=== PATIENT | male | born 1945 | race Caucasian/White ===

== ENCOUNTER → 2024-07-21 13:26 | Outpatient (REF) | payer MEDICARE, BC, SELFPAY ==
--- NOTE | 2024-07-21 14:58 | CARDSERVLU ---
Echocardiogram with [facility] completed after protocol screening completed. Allergies verified.
Patent IV site: ___new start 2nd attempt, successful by VAT, 22P LH__
IV site flushed with 0.9% NaCl pre and post administration.
Diluted bolus method utilized to enhance visualization of ventricular valdes.
Total volume given: __2.5__ mL
site dcd at completion of test.
Patient tolerated all procedures well without complications.
== END ==
LOC: RCS 13:26
PROVIDERS: ATTENDING PHYSICIAN Internal Medicine; FAMILY PHYSICIAN Internal Medicine
DX: I35.0 Nonrheumatic aortic (valve) stenosis (principal)
CPT/HCPCS: 93306; Q9950

== ENCOUNTER 2025-01-28 10:55 | Emergency (ER) | payer MEDICARE, BC, SELFPAY ==
[2025-01-28] VITALS (8 sets, daily range): BP systolic 120–149; BP diastolic 63–80; PULSE 70–78
[2025-01-28 11:14] LABS: Glucose - Point of Care 178 mg/dl (70-99)
[2025-01-28 11:42] LABS: ALT (SGPT) 25 U/L (0-50); AST (SGOT) 24 U/L (17-59); Albumin 4.4 g/dl (3.5-5.0); Alkaline Phosphatase 63 U/L (38-126); Blood Urea Nitrogen 13 mg/dl (9-20); Calcium 9.9 mg/dl (8.4-10.2); Carbon Dioxide 27 mmol/L (22-30); Chloride 104 mmol/L (98-107); Glucose 179 mg/dl (70-99); Potassium 4.3 mmol/L (3.5-5.1); Sodium 139 mmol/L (135-145); Total Bilirubin 0.7 mg/dl (0.2-1.3); Total Protein 7.3 g/dl (6.3-8.2); eGFR > 60.00
[2025-01-28 11:43] LABS: % Basophils 0.7 % (0-2); % Eosinophils 1.5 % (0-6); % Immature Granulocytes 0.3 % (0-0.5); % Lymphocytes 26.3 % (20.5-51.1); % Neutrophils 63.2 % (42.2-75.2); Absolute Basophils 0.1 10^3/uL (0-0.2); Absolute Eosinophils 0.2 10^3/uL (0-0.7); Absolute Lymphocytes 2.6 10^3/uL (1.2-3.4); Absolute Monocytes 0.8 10^3/uL (0.1-0.6); Absolute Neutrophils 6.2 10^3/uL (1.4-6.5); Hematocrit 45.1 % (39.0-52.0); Hemoglobin 15.4 g/dL (13.0-18.0); Mean Corp Hgb Conc. 34.1 g/dL (33.0-37.0); Mean Corpuscular Volume 90.7 fL (80.0-94.0); Mean Platelet Volume 8.6 fL (7.4-10.4); Nucleated Red Blood Cells % 0 % (-); Platelet Count 400 10^3/uL (130-400); Red Blood Cell Count 4.97 10^6/uL (4.70-6.10); Red Cell Dist. Width 13.2 % (11.5-14.5); White Blood Cell Count 9.9 10^3/uL (4.8-10.8)
[2025-01-28 11:51] LABS: Troponin I < 0.012 ng/ml
--- NOTE | 2025-01-28 13:13 | ED.GENMED ---
History of Present Illness
General
Chief Complaint: Chest Pain
Source: patient, spouse and family ([id number] who is at the bedside)
Exam Limitations: none
Time Seen by Provider: 01/28/25 13:12
Nursing documentation reviewed up to this point in time: agreed with
History of Present Illness
History of Present Illness:
The patient is a pleasant 79-year-old man who reports intermittent epigastric/lower chest pressure on and off for several days. Patient reports that at times it is associated with lightheadedness. Patient reports that currently his symptoms are
nearly gone. He reports that the symptoms that developed today began around 8:30 AM and intensified at around 10 [address] driving in his car with his . Patient denies any radiation of pain. He denies shortness of breath. He admits he is
under a lot of stress, as he is currently moving. He denies leg pain or leg swelling. He denies a history of PE and DVT. Patient denies any feelings of balance problems or visual changes. He denies headache.
Past History
Past History
ED Past Medical History: HTN, Hypercholesterolemia, NIDDM, Other (Osteoarthritis, obesity, history of bladder cancer status post resection, DIEGO on CPAP,) and Other (BPH)
ED Past Surgical History: None, Orthopedic, Urological and Other (Umbilical hernia repair)
Social History
Tobacco: Non-smoker
Alcohol: None
Drug: None
Personal:
Living: with family (rehab)
Employment: Other
Family History
Family History: Other (n/c)
Review of Systems
Review of Systems
Allergies reviewed?: Yes
All Other Systems: ROS reviewed and negative except as documented in HPI and ROS
Constitutional: Reports no symptoms
EENT: Reports no symptoms
Respiratory: Reports no symptoms
Cardiac: Reports chest pain and other (Lightheadedness)
ABD/GI: Reports no symptoms
: Reports no symptoms
Musculoskeletal: Reports no symptoms
Skin: Reports no symptoms
Neurological: Reports no symptoms
Endocrine: Reports no symptoms
Hematologic/Lymphatic: Reports no symptoms
Psychiatric: Reports no symptoms
Phy Exam
Physical Exam
Physical Exam:
Physical Exam
General: no apparent distress, not acutely ill. Well uncomfortable appearing
Neck: supple. no meningeal signs. normal psoterior pharynx
Heart: s1/s2 regular rate and rhythm, no murmur. equal radial pulses.
Lungs: no acute respiratory distress. clear bilaterally
Abdomen: normal bowel sounds. not tender. no CVAT
Neuro: alert and oriented. no focal neurological deficits
Skin: no rash
Psychiatric: well kept. interactive and cooperative
Extremities: no edema. no calf tenderness. negative homans. good distal pulses
Scores
Heart Score for Chest Pain Patients
STEMI patient?: No
History: Slightly or Non-Suspicious
ECG: Nonspecific Repolarization
Age: >/= 65 years
Risk Factors: 1 or 2 Risk Factors
Troponin: </= Normal Limit
Heart Score for Chest Pain Patients: 4
Heart Score Risk: 20.3% MACE over next 6 weeks
Course
Orders/Labs/Results
Orders:
Orders
01/28/25 10:56
EKG [Electrocardiogram (*1)] Urgent
Reason for Study: Chest Pain
01/28/25 10:57
EKG- Treatment ONCE
01/28/25 11:13
Complete Blood Count/With Diff Urgent
Comprehensive Metabolic Panel Urgent
Troponin I Urgent
01/28/25 13:22
Orthostatic VS- Treatment ONCE
01/28/25 14:12
Troponin I Urgent
Abnormal Lab Results
01/28/25 01/28/25
11:11 11:13
Absolute Monos (auto) 0.8 H 10^3/uL
(0.1-0.6)
Creatinine 0.6 L mg/dL
(0.7-1.3)
Glucose 179 H mg/dl
(70-99)
POC Glucose 178 H mg/dl
(70-99)
01/28/25 11:13
01/28/25 11:13
Vital Signs
Initial and Last Documented VS:
Initial Vital Signs
Temp Pulse Resp BP Pulse Ox
98.4 F 73 18 149/79 98
01/28/25 11:03 01/28/25 11:03 01/28/25 11:03 01/28/25 11:03 01/28/25 11:03
Last Documented Vital Signs
Temp Pulse Resp BP Pulse Ox
98.4 F 69 14 126/76 97
01/28/25 11:03 01/28/25 13:17 01/28/25 13:17 01/28/25 13:00 01/28/25 13:17
MDM/Problems Addressed
Differential Diagnosis Includes:
Acute coronary syndrome, PE, pneumonia, A-fib
MDM/Problems Addressed:
Patient presents with acute intermittent chest pressure lightheadedness
Chronic conditions affecting care: CAD
Acute Exacerbation and/or Progression of Chronic Illness:
Patient may have acute exacerbation of coronary artery disease
*Critical Care Note
Total Time (30-74mins, 75-104mins- exclusive of procedures): Not Applicable
Data Reviewed
Review of Other/Old Records Reveals: Testing (Cardiac catheterization reviewed from August 2023 which shows mild noncritical coronary artery disease)
Source: patient and family
Update Note
Update Note:
Patient remains well and comfortable appearing. He denies any difficulty with his balance or any visual changes so I do not think there is any sign or symptoms related to stroke. Patient feels comfortable and happy to go home.
ED Attending Note
-
Portions of this chart may have been created with voice recognition software.� Occasional wrong word or��sound alike� substitutions may have occurred due to the inherent limitations of voice recognition software.
Discharge Plan
Departure
Patient Disposition: Home (Routine Discharge)
Date of Disposition: 01/28/25
Time of Disposition: 15:01
Patient with high blood pressure during this ER visit?: Yes
Condition: Good
Covid-19: Not Applicable
Discharge Problem:
Chest pain
Instructions: Chest Pain CBC Follow Up, BLOOD PRESSURE
Prescriptions:
No Action
aspirin 81 MG tablet,delayed release (DR/EC)
81 mg PO DAILY
PreserVision AREDS 1 CAP capsule
1 cap PO DAILY
famotidine 20 MG tablet
20 mg PO HS
finasteride 5 MG tablet
5 mg PO DAILY
lisinopril 20 MG tablet
20 mg PO DAILY Qty: 90 3RF
nitroglycerin 0.4 MG tablet, sublingual
0.4 mg sublingual [id number] PRN (Reason: chest pain) Qty: 25 5RF
amlodipine 2.5 mg Tablet
2.5 mg PO DAILY
rosuvastatin 10 mg Tablet
10 mg PO HS
Bladder 2.2 200-5-250 mcg-mg-mcg Tablet
1 tab PO BID
metoprolol succinate 50 mg Tablet Extended Release 24 Hr
50 mg PO DAILY 30 Days Qty: 30 0RF
Referrals:
Eloina Burt NP [Family Provider] -
Interventions
Interventions:
*Risk Screen - Suicide Last Done: 01/28/25 11:03
*General Assessment Last Done: 01/28/25 11:03
*Neglect/Abuse Screening Last Done: 01/28/25 11:03
*ED- Fall Risk Assessment Last Done: 01/28/25 11:03
*ED COVID-19 Vaccine History Last Done: 01/28/25 11:03
ED- Cardiac Assessment Last Done: 01/28/25 14:01
Discharge Date and Time
Print Language: ROMANSH
[2025-01-28 14:41] LABS: Troponin I < 0.012 ng/ml
== END 2025-01-28 15:16 | disposition home or self-care (01) ==
LOC: EMR 10:55
PROVIDERS: Emergency Medicine; EMERGENCY PHYSICIAN Emergency Medicine; FAMILY PHYSICIAN Internal Medicine
DX: R07.89 Other chest pain (principal); E78.00 Pure hypercholesterolemia, unspecified; I10 Essential (primary) hypertension; E11.9 Type 2 diabetes mellitus without complications; G47.33 Obstructive sleep apnea (adult) (pediatric); I25.10 Atherosclerotic heart disease of native coronary artery without angina pectoris
CPT/HCPCS: 99284; 80053; 82962; 84484; 85025; 93005

== ENCOUNTER → 2025-02-03 11:43 | Outpatient (REF) | payer MEDICARE, BC, SELFPAY | LOC: HWRCS 11:43 | PROVIDERS: ATTENDING PHYSICIAN Internal Medicine Cardiovascular Disease; FAMILY PHYSICIAN Internal Medicine | DX: R07.2 Precordial pain (principal) | CPT/HCPCS: 78452; 93017; A9500; J2785 ==

== ENCOUNTER → 2025-03-16 10:47 | Outpatient (REF) | payer MEDICARE, BC, SELFPAY ==
[2025-03-16 11:34] LABS: Hematocrit 43.3 % (39.0-52.0); Hemoglobin 14.4 g/dL (13.0-18.0); Mean Corp Hgb Conc. 33.3 g/dL (33.0-37.0); Mean Corpuscular Volume 91.4 fL (80.0-94.0); Nucleated Red Blood Cells % 0 % (-); Platelet Count 390 10^3/uL (130-400); Red Cell Dist. Width 13.2 % (11.5-14.5)
[2025-03-16 12:13] LABS: Blood Urea Nitrogen 14 mg/dl (9-20); Calcium 9.6 mg/dl (8.4-10.2); Carbon Dioxide 26 mmol/L (22-30); Chloride 104 mmol/L (98-107); Glucose 142 mg/dl (70-99); Potassium 4.4 mmol/L (3.5-5.1); Sodium 140 mmol/L (135-145); eGFR > 60.00
== END ==
LOC: RCS 10:47
PROVIDERS: ATTENDING PHYSICIAN Student in an Organized Health Care Education/Training Program; FAMILY PHYSICIAN Internal Medicine
DX: Z01.818 Encounter for other preprocedural examination (principal)
CPT/HCPCS: 36415; 80048; 85025; 93005

== ENCOUNTER 2025-03-24 06:27 | Day surgery (SDC) | payer MEDICARE, BC, SELFPAY ==
[2025-03-24] VITALS (11 sets, daily range): BP systolic 122–149; BP diastolic 59–88; PULSE 98; O2SAT 94; BMI 33.6
[2025-03-24 10:59] LABS: Glucose - Point of Care 119 mg/dl (70-99)
[2025-03-24] MEDS: CELEBREX 200 MG PO (11:06)
[2025-03-24] MEDS: TYLENOL 1000 MG PO (11:06)
[2025-03-24] MEDS: NORMOSOL-R/PLASMALYTE-A 1000 IV (11:07)
[2025-03-24] MEDS: DILAUDID 0.25 MG IV ×2 (14:01→14:19)
[2025-03-24] MEDS: MORPHINE SULFATE 1 MG IV (14:29)
[2025-03-24] MEDS: ROXICODONE 5 MG PO (15:14)
== END 2025-03-24 16:20 | disposition home or self-care (01) ==
LOC: SDS 06:27
PROVIDERS: ATTENDING PHYSICIAN Student in an Organized Health Care Education/Training Program
DX: S82.841A Displaced bimalleolar fracture of right lower leg, initial encounter for closed fracture (principal); M97.21XA Periprosthetic fracture around internal prosthetic right ankle joint, initial encounter; W18.49XA Other slipping, tripping and stumbling without falling, initial encounter; Y93.89 Activity, other specified; Y92.008 Other place in unspecified non-institutional (private) residence as the place of occurrence of the external cause
CPT/HCPCS: 27814; C1713; 73610; 76000; 82962; 97162; 97530